=== PATIENT | female | born 1995 | race Caucasian/White ===

== ENCOUNTER 2023-12-08 05:18 | Inpatient (IN) | payer BC ==
[~2023-12-08] VITALS: Ht 157.5 cm; Wt 86.2 kg
[2023-12-08 05:25] VITALS: BP_SYST 127; PULSE 112; RESP 20; TEMP 97.2; O2SAT 98
[2023-12-08 06:31] LABS: BASOPHILS % (AUTO) 0.2 % (0.0-2.0); HEMATOCRIT 37.3 % (36-48); LYMPHOCYTES # (AUTO) 0.7 K/uL (1.0-5.5); LYMPHOCYTES % (AUTO) 6.3 % (20.5-51.5); MEAN CORPUSCULAR HEMOGLOBIN 30 pg (27-31); MEAN CORPUSCULAR HGB CONC 35 % (32-36); MEAN CORPUSCULAR VOLUME 85 fL (79.0-98.0); MONOCYTES # (AUTO) 0.4 K/uL (0.0-1.0); MONOCYTES % (AUTO) 3.3 % (1.7-9.3); NEUTROPHILS # (AUTO) 10.2 K/uL (1.8-7.7); NEUTROPHILS % (AUTO) 90.2 % (40.0-70.0); PLATELET COUNT (AUTO) 268 K/uL (130-430); RED BLOOD CELL COUNT(AUTO) 4.41 MIL/uL (4.2-6.2); RED CELL DISTRIBUTION WIDTH 12.7 % (9.0-15.0); WHITE BLOOD COUNT (AUTO) 11.3 K/uL (4.8-10.8)
[2023-12-08 07:09] LABS: ALANINE AMINOTRANSFERASE 283 U/L (12-78); ALBUMIN 3.6 g/dL (3.4-4.8); ANION GAP 8 (5-15); ASPARTATE AMINOTRANSFERASE 330 U/L (10-37); CARBON DIOXIDE 24 mmol/L (23-29); CHLORIDE 107 mmol/L (98-107); CREATININE 0.77 mg/dL (0.55-1.30); GFR AFRICAN AMERICAN 114 mL/min (>90); GFR NON AFRICAN-AMERICAN 94 mL/min (>90); GLUCOSE 153 mg/dL (74-106); POTASSIUM 3.9 mmol/L (3.5-5.1); SODIUM SERUM 139 mmol/L (136-145); TOTAL BILIRUBIN 0.8 mg/dL (0.0-1.0); TOTAL PROTEIN, SERUM 7.5 g/dL (6.4-8.3); UREA NITROGEN, BLOOD 10 mg/dL (8-21)
[2023-12-08 07:11] LABS: BILIRUBIN,DIRECT 0.4 mg/dL (0.0-0.3); LIPASE 21 U/L (16-77)
[2023-12-08] MEDS: MORPHINE 2 MG/ML INJ. SYRINGE IVP ONE (09:05)
[2023-12-08] MEDS ORDERED: CABERGOLINE PO (09:25)
[2023-12-08] MEDS ORDERED: ONDANSETRON HCL 4 MG/2 ML VIAL IVP PRN ×3 (11:45→20:00)
[2023-12-08] MEDS ORDERED: MORPHINE 2 MG/ML INJ. SYRINGE IVP PRN (11:45)
[2023-12-08] MEDS ORDERED: ACETAMINOPHEN 325 MG TABLET PO PRN ×2 (11:45→20:00)
[2023-12-08 12:49] LABS: LACTATE DEHYDROGENASE 341 U/L (81-234)
[2023-12-08 12:51] LABS: ACETAMINOPHEN < 1 ug/mL (1-30)
[2023-12-08] MEDS: NACL 0.9% 1,000 ML IV SCH (16:51)
[2023-12-08] MEDS: NACL 0.9% 1,000 ML IV ONE (16:58)
[2023-12-08] MEDS: D5/0.45 NS 1,000 ML IV SCH (16:59)
[2023-12-08] MEDS: METOCLOPRAMIDE HCL 10 MG/2 ML VIAL IVP ONE (17:04)
[2023-12-08] MEDS: ACETAMINOPHEN I.V. 1000 MG 100 ML IV ONE (18:04)
[2023-12-08] MEDS: MIDAZOLAM HCL 2 MG/2 ML VIAL (VERSED) ONE (18:04)
[2023-12-08] MEDS: fentaNYL CITRATE/PF 100 MCG/2 ML AMP ONE (18:04)
[2023-12-08] MEDS ORDERED: ceFAZolin SODIUM 2 GM VIAL ONE (18:43)
[2023-12-08] MEDS ORDERED: NALOXONE HCL 0.4 MG/ML AMP (NARCAN) IVP PRN ×2 (19:15→20:00)
[2023-12-08] MEDS ORDERED: fentaNYL CITRATE/PF 100 MCG/2 ML AMP IVP PRN ×2 (19:15)
[2023-12-08] MEDS: LR 1,000 ML IV ONE (19:15)
[2023-12-08] MEDS ORDERED: HYDROcodone/ACETAMIN 5-325 MG TAB (NORCO/ VICODIN) PO PRN (20:00)
[2023-12-08] MEDS: HYDROmorphone 1 MG/ML INJ. CARTRIDGE ONE (20:38)
[2023-12-08] MEDS: HYDROmorphone 1 MG/ML INJ. CARTRIDGE IVP PRN (20:40)
[2023-12-08 22:30] VITALS: BP_SYST 136; PULSE 85; RESP 19; TEMP 97.6
[2023-12-08] MEDS: metroNIDAZOLE 500 mg/NS 100 ML IV SCH (23:51)
[2023-12-08] MEDS: ceFAZolin SODIUM 2 GM in D5W 100 ML IV SCH (23:51)
[2023-12-09 04:00] VITALS: BP_SYST 128; PULSE 80; RESP 20; TEMP 97.8; O2SAT 98
[2023-12-09 06:51] LABS: HEMOGLOBIN 12.4 g/dL (12.0-16.0); LYMPHOCYTES # (AUTO) 0.8 K/uL (1.0-5.5); LYMPHOCYTES % (AUTO) 6.3 % (20.5-51.5); MEAN CORPUSCULAR HEMOGLOBIN 30 pg (27-31); MEAN CORPUSCULAR HGB CONC 35 % (32-36); MEAN CORPUSCULAR VOLUME 87 fL (79.0-98.0); MONOCYTES # (AUTO) 0.7 K/uL (0.0-1.0); MONOCYTES % (AUTO) 5.6 % (1.7-9.3); NEUTROPHILS # (AUTO) 10.9 K/uL (1.8-7.7); NEUTROPHILS % (AUTO) 88.1 % (40.0-70.0); PLATELET COUNT (AUTO) 270 K/uL (130-430); RED BLOOD CELL COUNT(AUTO) 4.14 MIL/uL (4.2-6.2); RED CELL DISTRIBUTION WIDTH 12.5 % (9.0-15.0); WHITE BLOOD COUNT (AUTO) 12.4 K/uL (4.8-10.8)
[2023-12-09 07:27] LABS: ALBUMIN 3.3 g/dL (3.4-4.8); CALCIUM 7.7 mg/dL (8.4-11.0); CREATININE 0.77 mg/dL (0.55-1.30); POTASSIUM 4.1 mmol/L (3.5-5.1); TOTAL BILIRUBIN 0.4 mg/dL (0.0-1.0); TOTAL PROTEIN, SERUM 7.1 g/dL (6.4-8.3)
[2023-12-09 08:07] LABS: HEPATITIS A AB, IgM Negative (Negative); HEPATITIS B CORE AB, IgM Negative (Negative); HEPATITIS B SURFACE AG Negative (Negative); HEPATITIS C VIRUS AB Non Reactive (Non Reactive)
[2023-12-09 08:30] VITALS: O2SAT 99
[2023-12-09 08:35] VITALS: BP_SYST 116; PULSE 81; RESP 18; TEMP 97.3; O2SAT 99
[2023-12-09] MEDS: cefTRIAXone 1 GM in D5W 50 ML IV SCH (10:18)
[2023-12-09] MEDS ORDERED: HYDR-3917 PO (10:44)
[2023-12-09] MEDS ORDERED: ONDA-8 TL (10:44)
[2023-12-09] MEDS ORDERED: DOCU-144 PO (10:44)
[2023-12-09] MEDS ORDERED: LEVO750T64 PO (10:44)
[2023-12-09 12:15] VITALS: BP_SYST 127; PULSE 88; RESP 16; TEMP 97; O2SAT 98
[2023-12-09] MEDS: HYDROcodone/ACETAMIN 10-325 MG TAB PO PRN (13:18)
[2023-12-09 14:27] VITALS: BP_SYST 127; PULSE 88; RESP 16; TEMP 97; O2SAT 98
== END 2023-12-09 15:00 | disposition home or self-care (01) | DRG 419 ==
LOC: SED 05:18 → SMU 11:34
PROVIDERS: ADMIT Internal Medicine; ATTEND Internal Medicine
PROC: BF121ZZ Fluoroscopy of Gallbladder using Low Osmolar Contrast (ICD-10-PCS; 2023-12-08)
PROC: 0FT44ZZ Resection of Gallbladder, Percutaneous Endoscopic Approach (ICD-10-PCS; principal; 2023-12-08 18:43)
DX: K80.00 Calculus of gallbladder with acute cholecystitis without obstruction (principal); Z88.1 Allergy status to other antibiotic agents; Z79.899 Other long term (current) drug therapy
CPT/HCPCS: 36415; 74021; 76705; 80048; 80053; 80074; 80076; 83615; 83690; 84484; 85025; 87070; 87075; 88304; 93005; 99285; C1727; G0480; J0131; J0330; J0696; J1100; J1170; J2270; J2405; J2704; J2710; J2765; J3010; J3465; J3490; J7060; J7120; Q9967